=== PATIENT | female | born 1955 | race African-American/Black ===

== ENCOUNTER 2024-10-23 04:47 | Emergency (ER) | payer SELFPAY ==
[~2024-10-23] VITALS: Ht 175.3 cm; Wt 86.0 kg
[2024-10-23 04:54] VITALS: O2SAT 98
[2024-10-23 07:04] LABS: BASOPHILS % 0.7 % (0.0-2.0); EOSINOPHILS % 1.4 % (0.0-5.0); HEMOGLOBIN. 11.9 g/dL (12.0-16.0); MEAN CORPUSCULAR HEMOGLOBIN 25.5 pg (28.0-32.0); MEAN CORPUSCULAR HGB CONC 31.3 g/dL (31.0-37.0); MEAN CORPUSCULAR VOLUME 81.5 fL (81.0-99.0); MEAN PLATELET VOLUME 8.9 fl (7.4-10.4); MONOCYTES % 10.3 % (2.0-8.0); NEUTROPHILS % 43.6 % (40.0-76.0); PLATELET 174 x1000/uL (130-400); RED BLOOD CELL COUNT 4.66 mill/uL (4.2-5.4); RED CELL DISTRIBUTION WIDTH 14.8 % (11.6-14.6); WHITE BLOOD COUNT 2.7 x1000/uL (4.5-11.0)
[2024-10-23 07:10] LABS: CHLORIDE 105 mEq/L (98-107); POTASSIUM 3.8 mEq/L (3.5-5.1); SODIUM 144 mEq/L (136-145)
[2024-10-23 07:11] LABS: CARBON DIOXIDE 30 mEq/L (21-32)
[2024-10-23 07:12] LABS: CALCIUM 9.6 mg/dL (8.7-10.4)
[2024-10-23 07:16] LABS: CREATININE 0.6 mg/dL (0.6-1.0); GLUCOSE 106 mg/dL (70-105); UREA NITROGEN BLOOD 9 mg/dL (9-23)
[2024-10-23 07:17] LABS: TROPONIN I HIGH SENSITIVITY 8 ng/L (3.0-34)
[2024-10-23] MEDS ORDERED: ATEN100T MT (07:26)
[2024-10-23] MEDS ORDERED: HYDR25TA MT (07:26)
[2024-10-23] MEDS ORDERED: ENAL-79 MT (07:26)
[2024-10-23] MEDS ORDERED: AMLO10TA80 MT (07:26)
[2024-10-23 08:11] VITALS: BP 165/94; PULSE 76; RESP 18; TEMP 36.9; O2SAT 100
== END 2024-10-23 08:13 | disposition home or self-care (01) ==
LOC: ER 04:47
DX: R00.2 Palpitations (principal); I10 Essential (primary) hypertension; Z79.899 Other long term (current) drug therapy; Z88.0 Allergy status to penicillin; Z76.0 Encounter for issue of repeat prescription
CPT/HCPCS: 36415; 71045; 80048; 83880; 84484; 85025; 93005; 99285